=== PATIENT | female | born 1960 | race Native Hawaiian/Other Pacific Islander ===

== ENCOUNTER 2021-01-12 15:39 | Outpatient (CLI) | payer OTHER | END 2021-01-12 19:48 | disposition home or self-care (01) | LOC: INF 15:39 | PROVIDERS: ATTEND Internal Medicine Endocrinology, Diabetes & Metabolism | DX: Z23 Encounter for immunization (principal) | CPT/HCPCS: 96372 ==

== ENCOUNTER 2021-02-08 09:02 | Outpatient (CLI) | payer OTHER | END 2021-02-08 21:45 | disposition home or self-care (01) | LOC: INF 09:02 | PROVIDERS: ATTEND Internal Medicine | DX: Z23 Encounter for immunization (principal) | CPT/HCPCS: 96372 ==